=== PATIENT | male | born 1945 | race Caucasian/White ===

== ENCOUNTER → 2017-03-13 | Outpatient (CLI) | payer MEDICARE ==
[~2017-03-13] MED LIST: ACET1TAB86 PO; ACETAMINOPHEN 1000 MG/100 ML 100 ML IV ONE; ARTIFICIAL TEARS OPTH OINT 3.5 APPLIC/3.5 GM TUBO ONE; AZIT250T3 PO; BENZ1CAP34 PO; DONE5TAB7 PO; ESCI10TA PO; HYDR-3366 PO; HYDR-3516 PO; MAGN400S PO; PANT40TA3 PO; PRAV40TA2 PO
== END ==
LOC: CPRE 12:01
PROVIDERS: ATTEND Neurological Surgery
DX: M12.88 Other specific arthropathies, not elsewhere classified, other specified site (principal); M51.36 Other intervertebral disc degeneration, lumbar region

== ENCOUNTER 2017-03-16 05:55 | Observation (INO) | payer MEDICARE ==
--- NOTE | 2017-03-15 16:57 | MH ---
cc: JANEL TABOR M.D., ROHIT K. M.D. DRIGGERS, WESLEY M.D. DATE OF ADMISSION 03/16/2017 ADMISSION DIAGNOSIS Lumbar spinal stenosis. HISTORY OF PRESENT ILLNESS This is a 72-year-old male who presented to our office for evaluation of difficulty with walking for 5 years. He is also known to our practice for a history of normal-pressure hydrocephalus which he has undergone a SEARCH ENGINE MARKETING MANAGER shunt for on 07/22/2015. He also has complaints of low back pain he has had for 5 years which have been stable and not progressively getting worse. He denies any radiculopathy in the lower extremities. He relates that walking more than 20-30 feet is very difficult for him with cramping in his legs along with back pain. He denies any numbness in the lower extremities. He denies any bowel or bladder incontinence. He has been ambulating with a cane and around the house uses a walker for the last 6 months. He saw his orthopedic surgeon because he is having pain in his knees also and he ordered an MRI scan to further evaluate his complaints of difficulty with walking with pain. PAST MEDICAL HISTORY Significant for: 1. Lymphoma. 2. Normal pressure hydrocephalus status post SEARCH ENGINE MARKETING MANAGER shunt placement. 3. Appendectomy 1963. 4. Hypertension. 5. Hyperlipidemia. 6. Depression. MEDICATIONS Current medications: 1. Donepezil 5 milligrams q.h.s. 2. Escitalopram 10 milligrams daily. 3. Pantoprazole 40 milligrams daily. 4. Pravastatin 40 mg daily. ALLERGIES NO KNOWN DRUG ALLERGIES. FAMILY HISTORY His mother and father are . His mother was 93 years old and his father was 50 years old and a sister is also at 67 years old. He has another sister who is 68 years old. 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 He is . He has children. He does not smoke, although has in the past. REVIEW OF SYSTEMS CONSTITUTIONAL: Denies any fever or chills. EARS, NOSE, AND THROAT: No pharyngitis, exudates or bloody drainage from his nose. CARDIOVASCULAR: Denies any chest pain or palpitations RESPIRATORY: No cough or shortness of breath. GASTROINTESTINAL: No nausea, vomiting or abdominal pain. GENITOURINARY: No dysuria or hematuria. MUSCULOSKELETAL: Positive for difficulty with his gait and unsteadiness and bilateral knee pain. He also has chronic low back pain. NEUROLOGIC: No difficulty with speech. PSYCHIATRIC: Positive for depression symptoms. No anxiety. INTEGUMENT: No rashes or pruritus. ENDOCRINE: No polyuria, polydipsia. HEMATOLOGIC: No bruising or bleeding tendencies. PHYSICAL EXAMINATION HEAD: He has the right SEARCH ENGINE MARKETING MANAGER shunt in place, reservoir refills well. NECK: Supple. No carotid bruits heard on auscultation. LUNGS: Clear to auscultation bilaterally. HEART: Regular rate and rhythm, normal S1-S2. ABDOMEN: Soft and nontender. Positive bowel sounds. SKIN: Reveals no cyanosis or erythema. MUSCULOSKELETAL: He has 5/5 strength in the upper and lower extremities. He ambulates with an unsteady gait and uses a cane. He also has a kyphotic posture. NEUROLOGIC: He is awake, alert, oriented. Cranial nerves II-XII are grossly intact. His speech is fluent. Comprehension is good. Patellar reflexes are 2+ bilaterally. Achilles reflexes are diminished bilaterally. LABORATORY DATA Data reviewed, we viewed an MRI of the lumbar spine from January 31, 2017 which reveals moderate to severe spinal stenosis at L2-L3 and severe spinal stenosis at L3-L4, L4-L5 from a combination of facet and ligamentum flavum hypertrophy. He also has multilevel degenerative disk disease involving L3-L4, L4-L5 in particular. PLAN We have discussed treatment options with the patient and he is requesting that we proceed with surgical intervention. He has undergone physical therapy in the past. Treatment options include continued conservative treatment measures with physical therapy versus L2-L5 decompressive lumbar laminectomy. Given his history of normal-pressure hydrocephalus and severe neurogenic claudication symptoms and restricted activity status he may also require subsequent inpatient rehab. The procedure as well as the risk benefit, alternative and recovery time were explained in great detail with the patient. We have discussed the risks involved with surgery include but not limited to bleeding, infection, muscle weakness voice hoarseness, difficulty swallowing, heart attack, stroke, blood clots, scar tissue formation among others. The patient states he understands the procedure as well as the risks involved and is requesting that we proceed and is therefore scheduled accordingly. DICTATED BY: Bradley Diaz PA-C MD CARY Herrera/KK /4:23 PM /4:34 PM
--- NOTE | 2017-03-15 16:57 | MH ---
cc: JANEL TABOR M.D., ROHIT K. M.D. DRIGGERS, WESLEY M.D. DATE OF ADMISSION 03/16/2017 ADMISSION DIAGNOSIS Lumbar spinal stenosis. HISTORY OF PRESENT ILLNESS This is a 72-year-old male who presented to our office for evaluation of difficulty with walking for 5 years. He is also known to our practice for a history of normal-pressure hydrocephalus which he has undergone a INFORMATION TECHNOLOGY ANALYST shunt for on 07/22/2015. He also has complaints of low back pain he has had for 5 years which have been stable and not progressively getting worse. He denies any radiculopathy in the lower extremities. He relates that walking more than 20-30 feet is very difficult for him with cramping in his legs along with back pain. He denies any numbness in the lower extremities. He denies any bowel or bladder incontinence. He has been ambulating with a cane and around the house uses a walker for the last 6 months. He saw his orthopedic surgeon because he is having pain in his knees also and he ordered an MRI scan to further evaluate his complaints of difficulty with walking with pain. PAST MEDICAL HISTORY Significant for: 1. Lymphoma. 2. Normal pressure hydrocephalus status post INFORMATION TECHNOLOGY ANALYST shunt placement. 3. Appendectomy 1963. 4. Hypertension. 5. Hyperlipidemia. 6. Depression. MEDICATIONS Current medications: 1. Donepezil 5 milligrams q.h.s. 2. Escitalopram 10 milligrams daily. 3. Pantoprazole 40 milligrams daily. 4. Pravastatin 40 mg daily. ALLERGIES NO KNOWN DRUG ALLERGIES. FAMILY HISTORY His mother and father are . His mother was 93 years old and his father was 50 years old and a sister is also at 67 years old. He has another sister who is 68 years old. 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 He is . He has children. He does not smoke, although has in the past. REVIEW OF SYSTEMS CONSTITUTIONAL: Denies any fever or chills. EARS, NOSE, AND THROAT: No pharyngitis, exudates or bloody drainage from his nose. CARDIOVASCULAR: Denies any chest pain or palpitations RESPIRATORY: No cough or shortness of breath. GASTROINTESTINAL: No nausea, vomiting or abdominal pain. GENITOURINARY: No dysuria or hematuria. MUSCULOSKELETAL: Positive for difficulty with his gait and unsteadiness and bilateral knee pain. He also has chronic low back pain. NEUROLOGIC: No difficulty with speech. PSYCHIATRIC: Positive for depression symptoms. No anxiety. INTEGUMENT: No rashes or pruritus. ENDOCRINE: No polyuria, polydipsia. HEMATOLOGIC: No bruising or bleeding tendencies. PHYSICAL EXAMINATION HEAD: He has the right INFORMATION TECHNOLOGY ANALYST shunt in place, reservoir refills well. NECK: Supple. No carotid bruits heard on auscultation. LUNGS: Clear to auscultation bilaterally. HEART: Regular rate and rhythm, normal S1-S2. ABDOMEN: Soft and nontender. Positive bowel sounds. SKIN: Reveals no cyanosis or erythema. MUSCULOSKELETAL: He has 5/5 strength in the upper and lower extremities. He ambulates with an unsteady gait and uses a cane. He also has a kyphotic posture. NEUROLOGIC: He is awake, alert, oriented. Cranial nerves II-XII are grossly intact. His speech is fluent. Comprehension is good. Patellar reflexes are 2+ bilaterally. Achilles reflexes are diminished bilaterally. LABORATORY DATA Data reviewed, we viewed an MRI of the lumbar spine from January 31, 2017 which reveals moderate to severe spinal stenosis at L2-L3 and severe spinal stenosis at L3-L4, L4-L5 from a combination of facet and ligamentum flavum hypertrophy. He also has multilevel degenerative disk disease involving L3-L4, L4-L5 in particular. PLAN We have discussed treatment options with the patient and he is requesting that we proceed with surgical intervention. He has undergone physical therapy in the past. Treatment options include continued conservative treatment measures with physical therapy versus L2-L5 decompressive lumbar laminectomy. Given his history of normal-pressure hydrocephalus and severe neurogenic claudication symptoms and restricted activity status he may also require subsequent inpatient rehab. The procedure as well as the risk benefit, alternative and recovery time were explained in great detail with the patient. We have discussed the risks involved with surgery include but not limited to bleeding, infection, muscle weakness voice hoarseness, difficulty swallowing, heart attack, stroke, blood clots, scar tissue formation among others. The patient states he understands the procedure as well as the risks involved and is requesting that we proceed and is therefore scheduled accordingly. DICTATED BY: Bradley Diaz PA-C MD CARY Herrera/KK /4:23 PM /4:34 PM
--- NOTE | 2017-03-15 16:57 | MH ---
cc: JANEL TABOR M.D., ROHIT K. M.D. DRIGGERS, WESLEY M.D. DATE OF ADMISSION 03/16/2017 ADMISSION DIAGNOSIS Lumbar spinal stenosis. HISTORY OF PRESENT ILLNESS This is a 72-year-old male who presented to our office for evaluation of difficulty with walking for 5 years. He is also known to our practice for a history of normal-pressure hydrocephalus which he has undergone a COMMUNITY CENTER COORDINATOR shunt for on 07/22/2015. He also has complaints of low back pain he has had for 5 years which have been stable and not progressively getting worse. He denies any radiculopathy in the lower extremities. He relates that walking more than 20-30 feet is very difficult for him with cramping in his legs along with back pain. He denies any numbness in the lower extremities. He denies any bowel or bladder incontinence. He has been ambulating with a cane and around the house uses a walker for the last 6 months. He saw his orthopedic surgeon because he is having pain in his knees also and he ordered an MRI scan to further evaluate his complaints of difficulty with walking with pain. PAST MEDICAL HISTORY Significant for: 1. Lymphoma. 2. Normal pressure hydrocephalus status post COMMUNITY CENTER COORDINATOR shunt placement. 3. Appendectomy 1963. 4. Hypertension. 5. Hyperlipidemia. 6. Depression. MEDICATIONS Current medications: 1. Donepezil 5 milligrams q.h.s. 2. Escitalopram 10 milligrams daily. 3. Pantoprazole 40 milligrams daily. 4. Pravastatin 40 mg daily. ALLERGIES NO KNOWN DRUG ALLERGIES. FAMILY HISTORY His mother and father are . His mother was 93 years old and his father was 50 years old and a sister is also at 67 years old. He has another sister who is 68 years old. 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 He has children. He does not smoke, although has in the past. REVIEW OF SYSTEMS CONSTITUTIONAL: Denies any fever or chills. EARS, NOSE, AND THROAT: No pharyngitis, exudates or bloody drainage from his nose. CARDIOVASCULAR: Denies any chest pain or palpitations RESPIRATORY: No cough or shortness of breath. GASTROINTESTINAL: No nausea, vomiting or abdominal pain. GENITOURINARY: No dysuria or hematuria. MUSCULOSKELETAL: Positive for difficulty with his gait and unsteadiness and bilateral knee pain. He also has chronic low back pain. NEUROLOGIC: No difficulty with speech. PSYCHIATRIC: Positive for depression symptoms. No anxiety. INTEGUMENT: No rashes or pruritus. ENDOCRINE: No polyuria, polydipsia. HEMATOLOGIC: No bruising or bleeding tendencies. PHYSICAL EXAMINATION HEAD: He has the right COMMUNITY CENTER COORDINATOR shunt in place, reservoir refills well. NECK: Supple. No carotid bruits heard on auscultation. LUNGS: Clear to auscultation bilaterally. HEART: Regular rate and rhythm, normal S1-S2. ABDOMEN: Soft and nontender. Positive bowel sounds. SKIN: Reveals no cyanosis or erythema. MUSCULOSKELETAL: He has 5/5 strength in the upper and lower extremities. He ambulates with an unsteady gait and uses a cane. He also has a kyphotic posture. NEUROLOGIC: He is awake, alert, oriented. Cranial nerves II-XII are grossly intact. His speech is fluent. Comprehension is good. Patellar reflexes are 2+ bilaterally. Achilles reflexes are diminished bilaterally. LABORATORY DATA Data reviewed, we viewed an MRI of the lumbar spine from January 31, 2017 which reveals moderate to severe spinal stenosis at L2-L3 and severe spinal stenosis at L3-L4, L4-L5 from a combination of facet and ligamentum flavum hypertrophy. He also has multilevel degenerative disk disease involving L3-L4, L4-L5 in particular. PLAN We have discussed treatment options with the patient and he is requesting that we proceed with surgical intervention. He has undergone physical therapy in the past. Treatment options include continued conservative treatment measures with physical therapy versus L2-L5 decompressive lumbar laminectomy. Given his history of normal-pressure hydrocephalus and severe neurogenic claudication symptoms and restricted activity status he may also require subsequent inpatient rehab. The procedure as well as the risk benefit, alternative and recovery time were explained in great detail with the patient. We have discussed the risks involved with surgery include but not limited to bleeding, infection, muscle weakness voice hoarseness, difficulty swallowing, heart attack, stroke, blood clots, scar tissue formation among others. The patient states he understands the procedure as well as the risks involved and is requesting that we proceed and is therefore scheduled accordingly. DICTATED BY: Bradley Diaz PA-C MD CARY Herrera/KK /4:23 PM /4:34 PM
[~2017-03-16] VITALS: Ht 180.3 cm; Wt 104.6 kg
[~2017-03-16 05:55] MED LIST changes: -ACET1TAB86 PO; -ACETAMINOPHEN 1000 MG/100 ML 100 ML IV ONE; -ARTIFICIAL TEARS OPTH OINT 3.5 APPLIC/3.5 GM TUBO ONE; -BENZ1CAP34 PO; -HYDR-3366 PO; -HYDR-3516 PO; -MAGN400S PO
[2017-03-16] MEDS ORDERED: SODIUM CHLOR 0.9% 1000 ML INJ 1,000 ML IV SCH (07:00)
[2017-03-16] MEDS ORDERED: POVIDONE IODINE 5% (ANTISEPSIS KIT) 4 APPLICATIONS EACH NARE PRN (07:00)
[2017-03-16] MEDS ORDERED: CHLORHEXIDINE GLUCONATE 2 % 1 PACK (2 CLOTHS) TOPICAL PRN (07:00)
[2017-03-16] MEDS ORDERED: SODIUM CHLORID 0.9% 500 ML IV PRN (07:00)
[2017-03-16] MEDS ORDERED: METOPROLOL TARTRATE 25 MG TAB PO PRN (07:00)
[2017-03-16] MEDS ORDERED: INSULIN HUMAN REGULAR 1,000 UNITS/10 ML VIAL SQ PRN (07:00)
[2017-03-16] MEDS ORDERED: LACTATED RINGER'S 1000 ML IV PRN (07:00)
[2017-03-16] MEDS ORDERED: VANCOMYCIN 1,000 MG/NS 250 ML IV SCH ×2 (07:00)
[2017-03-16] MEDS ORDERED: methylPREDNISolone ACETATE 40 MG/ML VIAL ONE (07:22)
[2017-03-16] MEDS ORDERED: VANCOMYCIN HCL 1000 MG VIAL ONE (07:22)
[2017-03-16] MEDS ORDERED: THROMBIN (TOPICAL) 5,000 UNIT VIAL ONE (07:22)
[2017-03-16] MEDS ORDERED: GELFOAM SIZE 100 ONE (07:22)
[2017-03-16] MEDS ORDERED: BUPIVACAINE/EPINEPHRINE 0.5% PF 30 ML VIAL ONE (07:24)
[2017-03-16] MEDS ORDERED: BUPIVACAINE/EPINEPHRINE 0.5% 50 ML VIAL ONE (07:25)
[2017-03-16] MEDS ORDERED: ROCURONIUM INJ 50 MG/5 ML SYRINGE IV PUSH ONE (12:00)
[2017-03-16] MEDS ORDERED: MIDAZOLAM HCL 2 MG/2 ML VIAL IV ONE (12:00)
[2017-03-16] MEDS ORDERED: ONDANSETRON HCL 4 MG/2 ML VIAL IV PUSH ONE (12:00)
[2017-03-16] MEDS ORDERED: PROPOFOL 200 MG/20 ML AMP IV ONE (12:00)
[2017-03-16] MEDS ORDERED: LIDOCAINE HCL 1% PF 5 ML AMPULE OTHER ONE (12:00)
[2017-03-16] MEDS ORDERED: PHENYLEPHRINE HCL 10 MG/ML VIAL IV ONE (12:00)
[2017-03-16] MEDS ORDERED: NEOSTIGMINE 3 MG/3 ML SYR IV ONE (12:00)
[2017-03-16] MEDS ORDERED: ePHEDrine/NS 25 MG/5 ML SYR IV ONE (12:00)
[2017-03-16] MEDS ORDERED: GLYCOPYRROLATE 1 MG/5 ML SYRINGE IV PUSH ONE (12:00)
[2017-03-16] MEDS ORDERED: DEXAMETHASONE SOD PHOS 4 MG/ML VIAL IV ONE (12:00)
[2017-03-16] MEDS ORDERED: LACTATED RINGER'S 1000 ML INJ 1,000 ML IV ONE (12:00)
[2017-03-16] MEDS ORDERED: PHENYLEPH/NS 1000 MCG/10 ML SYR IV ONE (12:00)
[2017-03-16] MEDS ORDERED: DO NOT ADM ANY ANTICOAGULANT DRUGS PRN (12:06)
[2017-03-16] MEDS ORDERED: NS + KCL 20 MEQ INJ 1,000 ML IV SCH (12:17)
--- NOTE | 2017-03-16 12:22 | PD.OP ---
Operative Report Date of Surgery: Mar 16, 2017 Preoperative Diagnosis: Severe neurogenic claudication with associated multilevel severe spinal stenosis involving L2, L3, L4 and L5 with facet ligamentum flavum hypertrophy Postoperative Diagnosis: Same Procedure: Lumbar L2, L3, L4 and L5 decompressive laminectomies with medial facetectomies and foraminotomies; microsurgical technique Anesthesia: Gen. endotracheal by Giovanni Randhawa Surgeon: Stephen Garcia M.D. Design Studio Consultant(s): Safia Gunderson Operation and Findings: Following administration of general endotracheal anesthesia, patient received vancomycin 1 g intravenously. Sequential compression devices were placed for DVT prophylaxis. He was then turned in prone position on John frame and the Evin table and all pressure points adequately padded. The lumbar region was then shaved and prepped with a Betadine and ChloraPrep. Sterile draping undertaken with Ioban. Midline incision overlying the L2-L5 levels was then made after infiltrating the skin with 0.5% Marcaine with epinephrine solution. The skin incision was made extending down through the fascia and then using the subperiosteal plane on the left side the muscular attachments to the spinous process and lamina were detached. Intraoperative fluoroscopy was used for level confirmation and further dissection undertaken using microtechnique with microscope magnification. The inferior portion of the left L2, left L3, L4 and appear portion of the L5 lamina was then drilled out and the underlying ligamentum flavum also removed. There was facet arthropathy noted and the medial portion of facets as well as hypertrophied ligamentum flavum with significant multilevel stenosis from L2 to L5 level. The hypertrophied medial portion of the facets and ligamentum flavum was also resected and the lateral recess decompressed. Through the multilevel left-sided the laminotomy with gentle retraction of the thecal sac was also able to resect the hypertrophied ligamentum flavum and medial facets on the right side from L2 to L5 levels were circumferential spinal canal decompression. Epidural venous stasis which he with the bipolar cautery along with Gelfoam and thrombin and bone wax used at the laminotomy edges for hemostasis. The area was then copiously irrigated with vancomycin solution. The retractors removed and the muscle fascia proximal using 2-0 Vicryl interrupted stitches. 3-0 Vicryl subcuticular stitches were also placed in an interrupted fashion and planned skin closure was with Mastisol and Steri-Strips. A sterile dressing was then applied and the patient then turned in the supine position and extubated and taken to recovery room in stable condition. There were no intraoperative complications and all sponge and needle count was correct at the end of the procedure. Estimated blood loss about 150 cc. Stephen Garcia MD Mar 16, 2017 12:22
[2017-03-16] MEDS ORDERED: ALUMINUM/MAGNESIUM/SIMETH 30 ML CUP PO PRN (12:30)
[2017-03-16] MEDS ORDERED: ZOLPIDEM TARTRATE 5 MG TAB PO PRN (12:30)
[2017-03-16] MEDS ORDERED: MAGNESIUM HYDROXIDE SUSP 30 ML CUP PO PRN (12:30)
[2017-03-16] MEDS ORDERED: PROMETHAZINE INJ 25 MG/ML VIAL IM PRN (12:30)
[2017-03-16] MEDS ORDERED: ACETAMINOPHEN 325 MG TAB PO PRN (12:30)
[2017-03-16] MEDS ORDERED: RESP: ALBUTEROL 2.5 MG/3 ML NEB (PRN) NEB (12:30)
[2017-03-16] MEDS ORDERED: MORPHINE SULFATE 4 MG/ML INJ IV PUSH PRN (12:30)
[2017-03-16] MEDS ORDERED: ONDANSETRON HCL 4 MG/2 ML VIAL IV PUSH PRN (12:30)
[2017-03-16] MEDS ORDERED: ACETAMINOPHEN/HYDROcodone 325 MG/10 MG TAB PO PRN ×2 (12:30)
[2017-03-16] MEDS ORDERED: SODIUM CHLORIDE 0.9% FLUSH 10 ML FLUSH IV FLUSH PRN (12:30)
[2017-03-16] MEDS ORDERED: cloNIDine HCL 0.1 MG TAB PO PRN (12:30)
[2017-03-16] MEDS ORDERED: MENTHOL LOZENGE BUCCAL PRN (12:30)
[2017-03-16] MEDS ORDERED: CYCLOBENZAPRINE HCL 10 MG TAB PO PRN (12:30)
--- NOTE | 2017-03-16 13:13 | RADRPT ---
EXAM DATE/TIME: 03/16/2017 08:42 [facility] COMPARISON: No previous studies available for comparison. INDICATIONS : Level Localization L2 to L5 for laminectomy. MEDICAL HISTORY : Normal pressure hydrocephalus. Hypertension. Lymphoma. SURGICAL HISTORY : ventriculoperitneal shunt ENCOUNTER: Initial ACUITY: 1 day PAIN SCORE: Non-responsive. LOCATION: Lumbar spine. FINDINGS: Two view examination was performed. Posterior markers were placed on the body of L5 and at the disc space level of L2-3. CONCLUSION: Level localization from L2-L5. Alexis Lopes MD on March 16, 2017 at 13:10 Board Certified Radiologist. This report was verified electronically.
[2017-03-16] MEDS ORDERED: DIMETHICONE/OXYBENZONE/PADMIATE LIP BALM 4.25 GM TOPICAL ONE (14:03)
[2017-03-16 15:15] VITALS: BP 146/81; PULSE 89; RESP 18; TEMP 95.4; O2SAT 94
[2017-03-16 20:20] VITALS: BP 145/82; PULSE 90; RESP 17; TEMP 97.6; O2SAT 97
[2017-03-16] MEDS: AZITHROMYCIN 250 MG TAB PO SCH (20:37)
[2017-03-16] MEDS: DOCUSATE SODIUM 100 MG CAP PO SCH (20:38)
[2017-03-16] MEDS ORDERED: DONEPEZIL HCL 5 MG TAB PO SCH (21:00)
[2017-03-16] MEDS ORDERED: SODIUM CHLORIDE 0.9% FLUSH 10 ML FLUSH IV FLUSH SCH (21:00)
[2017-03-17] VITALS (7 sets, daily range): BP systolic 131–181; BP diastolic 72–89; PULSE 60–85; RESP 17–18; TEMP 95.7–97.9; O2SAT 93–97
[2017-03-17] MEDS: DOCUSATE SODIUM 100 MG CAP PO SCH (07:47)
[2017-03-17] MEDS: AZITHROMYCIN 250 MG TAB PO SCH (07:48)
[2017-03-17] MEDS ORDERED: ESCITALOPRAM OXALATE 10 MG TAB PO SCH (09:00)
[2017-03-17] MEDS ORDERED: PRAVASTATIN SOD 40 MG TAB PO SCH (09:00)
[2017-03-17] MEDS ORDERED: PANTOPRAZOLE SOD 40 MG DELAYED RELEASE TAB PO SCH (09:00)
--- NOTE | 2017-03-17 09:51 | HHI.NSPN ---
(Bradley Diaz) History Chief Complaint: generalized weakness in LEs. (Bradley Diaz) Interval History 03/17: Pt states he is doing very well with pain control. No radiculopathy in LEs. Legs fatigue and deconditioned. Pt lives alone and will benefit from rehab. (Bradley Diaz) Review of Systems General: Negative for: fever, chills, insomnia Respiratory: Negative for: shortness of breath, cough, sputum Cardiovascular: Negative for: chest pain Gastrointestinal: Negative for: nausea, vomitting, diarrhea, constipation ( Bradley Diaz) Exam Results Vital Signs Date Time Temp Pulse Resp B/P (MAP) Pulse Ox O2 Delivery O2 Flow Rate FiO2 03/17/17 07:30 96.3 62 17 166/74 (104) 93 03/16/17 14:45 Nasal Cannula 2 Intake and Output 03/17/17 03/17/17 03/18/17 08:00 16:00 00:00 Intake Total 440 ml Output Total 650 ml Balance -210 ml (Bradley Diaz) Physical Examination Resp: CTA bilaterally Heart: NSR no murmurs Abd: Soft positive bs Skin: No cyanosis or erythema. Bandage dry. Muscle: Moves LEs with good strength manual testing. Neuro: Pt awake and alert. Sitting up in chair. Follows commands well. Speech clear and appropriate. (Bradley Diaz) Lab, Micro, Other Results Last Impressions Lumbar Spine X-Ray 03/16/17 0000 Signed Impressions: Service Date/Time: February 08:42 - CONCLUSION: Level localization from L2-L5. Alexis Lopes MD (Bradley Diaz) Medical Decision Making Impression and Plan A: 72 y/o M s/p L2, L3, L4, and L5 decompressive laminectomy. P: Continue with PT Continue with pain control Recommend rehab placement given his deconditioning in his legs and he lives alone. (Bradley Diaz) Attending Statement The exam, history, and the medical decision-making described in the above note were completed with the assistance of the mid-level provider. I reviewed and agree with the findings presented. I attest that I had a [id number] encounter with the patient on the same day, and personally performed and documented my assessment and findings in the medical record. (Stephen Garcia MD) Bradley Diaz Mar 17, 2017 09:51 Stephen Garcia MD Mar 17, 2017 10:01
[2017-03-17] MEDS ORDERED: HYDR-3366 PO (17:58)
[2017-03-24] MEDS ORDERED: PRAV40TA2 PO (09:25)
[2017-03-24] MEDS ORDERED: DONE5TAB7 PO (09:25)
[2017-03-24] MEDS ORDERED: ACET1TAB86 PO (09:25)
[2017-03-24] MEDS ORDERED: PANT40TA3 PO (09:25)
[2017-03-24] MEDS ORDERED: ESCI10TA PO (09:25)
[2017-03-24] MEDS ORDERED: MAGN400S PO (09:25)
[2017-03-24] MEDS ORDERED: HYDR-3516 PO (09:25)
== END 2017-03-17 17:38 ==
LOC: HSDC 05:55 → INTOOBSV 12:51 → HSDI 12:51 → N06B 15:13
PROVIDERS: ADMIT Neurological Surgery; ATTEND Neurological Surgery
DX: M48.061 Spinal stenosis, lumbar region without neurogenic claudication (principal); M51.36 Other intervertebral disc degeneration, lumbar region; Z98.2 Presence of cerebrospinal fluid drainage device; G91.2 (Idiopathic) normal pressure hydrocephalus; I10 Essential (primary) hypertension; E78.5 Hyperlipidemia, unspecified; Z85.72 Personal history of non-Hodgkin lymphomas
CPT/HCPCS: 00630; 63030; 63035; 72100; 76000; 94150; 97162; 97167; G0378; G8987; G8988; J0690; J1030; J1100; J2250; J2370; J2405; J2710; J3010; J3370; J3480; J7120